=== PATIENT | female | born 1985 | race Caucasian/White ===

== ENCOUNTER 2016-11-16 11:01 | Inpatient (IN) | payer MEDICAID ==
[~2016-11-16] VITALS: Ht 154.9 cm; Wt 68.0 kg
[2016-11-16 11:01] VITALS: BP_SYST 121
--- NOTE | 2016-11-16 11:18 | NUR ---
Patient to ER bed 4 to gown for evaluation. Side rails up.
[2016-11-16] MEDS ORDERED: NACL 0.9% 1,000 ML IV ONE ×2 (11:20→14:45)
--- NOTE | 2016-11-16 11:20 | NUR ---
Pt presents to ED c/o abd pain RUQ and R flank pain since 0200 this AM with vomiting. Pt denies significant med hx. Pt reports vomiting greater than 10 prior to ED visit.
[2016-11-16] MEDS ORDERED: ONDANSETRON HCL 4 MG/2 ML VIAL IVP ONE ×2 (11:30→12:15)
[2016-11-16] MEDS ORDERED: KETOROLAC TROMETHAMINE 30 MG VIAL IVP ONE (11:30)
--- NOTE | 2016-11-16 11:30 | NUR ---
ER at bedside examining patient.
[2016-11-16 11:41] LABS: BASOPHILS % (AUTO) 0.3 % (0.0-2.0); EOSINOPHILS % (AUTO) 0.1 % (0.0-4.0); HEMATOCRIT 42.4 % (36-48); HEMOGLOBIN 13.9 g/dL (12.0-16.0); LYMPHOCYTES % (AUTO) 8.6 % (20.5-51.5); MEAN CORPUSCULAR HEMOGLOBIN 30 pg (27-31); MEAN CORPUSCULAR HGB CONC 33 % (32-36); MEAN CORPUSCULAR VOLUME 92 fL (79.0-98.0); MONOCYTES # (AUTO) 0.2 K/uL (0.0-1.0); MONOCYTES % (AUTO) 1.8 % (1.7-9.3); NEUTROPHILS # (AUTO) 10.5 K/uL (1.8-7.7); NEUTROPHILS % (AUTO) 89.2 % (40.0-70.0); PLATELET COUNT (AUTO) 305 K/uL (130-430); RED BLOOD CELL COUNT(AUTO) 4.59 MIL/uL (4.2-6.2); WHITE BLOOD COUNT (AUTO) 11.7 K/uL (4.8-10.8)
[2016-11-16 11:49] LABS: CALCIUM 9.9 mg/dL (8.4-11.0); CREATININE 0.76 mg/dL (0.55-1.30); POTASSIUM 3.3 mmol/L (3.5-5.1)
[2016-11-16 11:53] LABS: PROTHROMBIN TIME 10.9 SECS (9.5-12.5)
[2016-11-16 11:54] LABS: ALBUMIN 4.2 g/dL (3.4-4.8); TOTAL BILIRUBIN 0.5 mg/dL (0.0-1.0)
--- NOTE | 2016-11-16 11:58 | NUR ---
Discussed with Dr. España that I am unable to obtain urine specimen at this time to perform HCG. Patient states that today is the first day of her period. This was discussed with Dr. España who states it is ok to give Toradol.
--- NOTE | 2016-11-16 12:00 | NUR ---
Pt unable to give urine specimen
--- NOTE | 2016-11-16 12:20 | NUR ---
HCG positive through blood specimen. Pt persist that Menses started today.
[2016-11-16] MEDS ORDERED: HYDROmorphone 1 MG INJ. 1 MG/ML AMPUL IVP ONE (13:00)
[2016-11-16] MEDS ORDERED: METOCLOPRAMIDE HCL 10 MG/2 ML VIAL IVP ONE (13:00)
--- NOTE | 2016-11-16 13:00 | NUR ---
Pt med for pain. pt tolerated well.
--- NOTE | 2016-11-16 13:15 | NUR ---
Off unit for US.
[2016-11-16 13:18] LABS: BILIRUBIN,URINE NEGATIVE (NEGATIVE); BLOOD, URINE NEGATIVE (NEGATIVE); CLARITY/URINE CLEAR (CLEAR); COLOR,URINE YELLOW (YELLOW); GLUCOSE,URINE NEGATIVE (NEGATIVE); KETONES,URINE 3+ (NEGATIVE); LEUKOCYTE ESTERASE ,URINE NEGATIVE (NEGATIVE); NITRITE, URINE NEGATIVE (NEGATIVE); PROTEIN URINE 1+ (NEGATIVE)
[2016-11-16 13:22] LABS: BACTERIA,URINE MODERATE /HPF (None Seen); RBC,URINE 0-3 /HPF (0-3); WBC,URINE 0-3 /HPF (0-3)
[2016-11-16] MEDS ORDERED: POTASSIUM CHLORIDE 20 MEQ TAB.PRT.SR PO ONE (14:30)
--- NOTE | 2016-11-16 14:30 | NUR ---
Pt sleeping easily arouseable. No acute distress at this time.
[2016-11-16] MEDS ORDERED: PROCHLORPERAZINE EDISYLATE 10 MG/2 ML VIAL IVP ONE (14:45)
[2016-11-16] MEDS ORDERED: MORPHINE 2 MG/ML INJ. SYRINGE IVP ONE (14:45)
--- NOTE | 2016-11-16 15:30 | NUR ---
Pt medicatedfor pain and nausea. pt tolerate well.
--- NOTE | 2016-11-16 16:15 | NUR ---
Pt returned to sleeping. Continuing to monitor.
--- NOTE | 2016-11-16 17:25 | NUR ---
Pt refused tylenol for pain.
[2016-11-16] MEDS ORDERED: ACETAMINOPHEN 325 MG TABLET PO ONE (17:30)
--- NOTE | 2016-11-16 17:30 | NUR ---
Pt did not tolerate clear liquid diet.
--- NOTE | 2016-11-16 18:20 | NUR ---
Patient will be admitted to care of Dr. Weinberg. Admitted to OB unit. Will go to room 6. Belongings list completed. Summary report printed. Report will be given at bedside.
[2016-11-16] MEDS ORDERED: MORPHINE 4 MG/ML INJ. SYRINGE IM PRN (19:15)
[2016-11-16] MEDS ORDERED: METOCLOPRAMIDE HCL 10 MG/2 ML VIAL IVP PRN (19:15)
[2016-11-16] MEDS ORDERED: MORPHINE 4 MG/ML INJ. SYRINGE IVP PRN (19:15)
[2016-11-16] MEDS ORDERED: COMMUNICATION ORDER XX ONE (19:15)
[2016-11-16] MEDS: MORPHINE SULFATE 10 MG/ML VIAL IVP PRN (19:53)
[2016-11-16] MEDS: MORPHINE SULFATE 4 MG/ML VIAL IVP PRN (19:54)
[2016-11-16] MEDS: LR 1,000 ML IV SCH (19:55)
[2016-11-16] MEDS: ONDANSETRON HCL 4 MG/2 ML VIAL IVP SCH (20:07)
[2016-11-16 20:09] LABS: BARBITURATE, URINE NEGATIVE (NEG <=200); BENZODIAZEPINE, URINE NEGATIVE (NEG <=150); CANNABINOID, URINE POSITIVE (NEG <=50); COCAINE, URINE NEGATIVE (NEG <=150); METHAMPHETAMINES SCREEN,URINE NEGATIVE (NEG <=500); OPIATE, URINE POSITIVE (NEG <=100); PHENCYCLIDINE SCREEN,URINE NEGATIVE (NEG <=25); UR TRICYCLIC ANTIDEPRESSANTS NEGATIVE (NEG <=300); URINE AMPHETAMINE NEGATIVE (NEG <=500); URINE METHADONE NEGATIVE (NEG <=200); URINE OXYCODONE SCREEN NEGATIVE (NEG <=100); URINE PROPOXYPHENE SCREEN NEGATIVE (NEG <=300)
[2016-11-16 21:35] VITALS: BP_SYST 135
[2016-11-17] MEDS: ONDANSETRON HCL 4 MG/2 ML VIAL IVP SCH (03:15)
[2016-11-17] MEDS: MORPHINE SULFATE 10 MG/ML VIAL IVP PRN (03:17)
[2016-11-17] MEDS: MORPHINE SULFATE 4 MG/ML VIAL IVP PRN (03:18)
[2016-11-17] MEDS: LR 1,000 ML IV SCH (03:19)
[2016-11-17 06:36] LABS: BASOPHILS % (AUTO) 0.3 % (0.0-2.0); EOSINOPHILS % (AUTO) 0.4 % (0.0-4.0); HEMATOCRIT 31.5 % (36-48); HEMOGLOBIN 10.5 g/dL (12.0-16.0); LYMPHOCYTES # (AUTO) 2.1 K/uL (1.0-5.5); LYMPHOCYTES % (AUTO) 18.4 % (20.5-51.5); MEAN CORPUSCULAR HEMOGLOBIN 30 pg (27-31); MEAN CORPUSCULAR HGB CONC 33 % (32-36); MEAN CORPUSCULAR VOLUME 91 fL (79.0-98.0); MONOCYTES # (AUTO) 0.8 K/uL (0.0-1.0); MONOCYTES % (AUTO) 7.2 % (1.7-9.3); NEUTROPHILS # (AUTO) 8.6 K/uL (1.8-7.7); NEUTROPHILS % (AUTO) 73.7 % (40.0-70.0); PLATELET COUNT (AUTO) 212 K/uL (130-430); RED BLOOD CELL COUNT(AUTO) 3.46 MIL/uL (4.2-6.2); RED CELL DISTRIBUTION WIDTH 11.8 % (9.0-15.0); WHITE BLOOD COUNT (AUTO) 11.5 K/uL (4.8-10.8)
[2016-11-17 07:12] LABS: ALBUMIN 3.1 g/dL (3.4-4.8); CALCIUM 8.7 mg/dL (8.4-11.0); CREATININE 0.58 mg/dL (0.55-1.30); POTASSIUM 3.2 mmol/L (3.5-5.1); TOTAL BILIRUBIN 0.4 mg/dL (0.0-1.0)
[2016-11-17] MEDS ORDERED: ACETAMINOPHEN 325 MG TABLET ONE ×2 (07:30→15:19)
[2016-11-17] MEDS: ONDANSETRON 4 MG ODT TAB PO PRN ×2 (09:32→15:13)
[2016-11-17] MEDS: METOCLOPRAMIDE HCL 10 MG TABLET PO SCH ×2 (12:17→18:09)
[2016-11-17] MEDS ORDERED: ACETAMINOPHEN 325 MG TABLET PO PRN (15:15)
[2016-11-17] MEDS ORDERED: LR 1,000 ML IV SCH (17:45)
[2016-11-17] MEDS ORDERED: MORPHINE 4 MG/ML INJ. SYRINGE IVP PRN (17:45)
[2016-11-17] MEDS ORDERED: MORPHINE SULFATE 10 MG/ML VIAL IM PRN (17:45)
[2016-11-17] MEDS ORDERED: MORPHINE SULFATE 10 MG/ML VIAL IVP PRN (17:45)
[2016-11-18] MEDS ORDERED: ONDANSETRON HCL 4 MG/2 ML VIAL IVP PRN
[2016-11-18] MEDS: MORPHINE SULFATE 10 MG/ML VIAL IM PRN ×2 (01:03→06:10)
[2016-11-18 07:13] LABS: BASOPHILS % (AUTO) 0.5 % (0.0-2.0); EOSINOPHILS # (AUTO) 0.1 K/uL (0.0-0.4); EOSINOPHILS % (AUTO) 1.1 % (0.0-4.0); HEMOGLOBIN 10.9 g/dL (12.0-16.0); LYMPHOCYTES # (AUTO) 1.9 K/uL (1.0-5.5); LYMPHOCYTES % (AUTO) 24.1 % (20.5-51.5); MEAN CORPUSCULAR HEMOGLOBIN 30 pg (27-31); MEAN CORPUSCULAR HGB CONC 33 % (32-36); MEAN CORPUSCULAR VOLUME 92 fL (79.0-98.0); MONOCYTES # (AUTO) 0.5 K/uL (0.0-1.0); MONOCYTES % (AUTO) 6.8 % (1.7-9.3); NEUTROPHILS # (AUTO) 5.4 K/uL (1.8-7.7); NEUTROPHILS % (AUTO) 67.5 % (40.0-70.0); PLATELET COUNT (AUTO) 226 K/uL (130-430); RED CELL DISTRIBUTION WIDTH 11.6 % (9.0-15.0); WHITE BLOOD COUNT (AUTO) 7.9 K/uL (4.8-10.8)
== END 2016-11-18 14:00 | disposition home or self-care (01) | DRG 566 ==
LOC: SED 11:01 → SPU 17:47
PROVIDERS: ADMIT Obstetrics & Gynecology; ATTEND Obstetrics & Gynecology
DX: O21.0 Mild hyperemesis gravidarum (principal); Z87.442 Personal history of urinary calculi; Z3A.01 Less than 8 weeks gestation of pregnancy; Z82.49 Family history of ischemic heart disease and other diseases of the circulatory system
CPT/HCPCS: 36415; 76700-TC; 76801; 76817; 80053; 80307; 81000-TC; 81025; 83690-TC; 84702-TC; 85025; 85610-TC; 85730-TC; 87086; 96374; 96375; 99285; J0780; J1170; J1885; J2270; J2405; J2765; J7030; J7120; J8597; Q0162

== ENCOUNTER 2020-04-14 14:59 | Emergency (ER) | payer MEDICAID ==
[~2020-04-14] VITALS: Ht 157.5 cm; Wt 72.6 kg
[2020-04-14 15:20] VITALS: BP_SYST 154
[2020-04-14] MEDS ORDERED: ONDANSETRON 4 MG ODT TAB ONE (15:41)
[2020-04-14] MEDS ORDERED: ONDANSETRON HCL 4 MG/2 ML VIAL ONE (15:43)
[2020-04-14] MEDS ORDERED: MORPHINE 4 MG/ML INJ. SYRINGE ONE ×2 (15:58→20:09)
[2020-04-14] MEDS ORDERED: ONDANSETRON HCL 4 MG/2 ML VIAL IVP ONE (16:00)
[2020-04-14] MEDS ORDERED: NACL 0.9% 1,000 ML IV ONE (16:30)
[2020-04-14] MEDS ORDERED: HALOPERIDOL LACTATE 5 MG/ML VIAL IVP ONE (17:15)
[2020-04-14] MEDS ORDERED: HALOPERIDOL LACTATE 5 MG/ML VIAL ONE (17:19)
[2020-04-14 17:25] LABS: BASOPHILS % (AUTO) 0.1 % (0.0-2.0); HEMATOCRIT 41.3 % (36-48); HEMOGLOBIN 14.5 g/dL (12.0-16.0); LYMPHOCYTES # (AUTO) 0.8 K/uL (1.0-5.5); LYMPHOCYTES % (AUTO) 4.1 % (20.5-51.5); MEAN CORPUSCULAR HEMOGLOBIN 31 pg (27-31); MEAN CORPUSCULAR HGB CONC 35 % (32-36); MEAN CORPUSCULAR VOLUME 88 fL (79.0-98.0); MONOCYTES # (AUTO) 0.3 K/uL (0.0-1.0); MONOCYTES % (AUTO) 1.4 % (1.7-9.3); NEUTROPHILS # (AUTO) 18.2 K/uL (1.8-7.7); NEUTROPHILS % (AUTO) 94.4 % (40.0-70.0); PLATELET COUNT (AUTO) 335 K/uL (130-430); RED BLOOD CELL COUNT(AUTO) 4.71 MIL/uL (4.2-6.2); RED CELL DISTRIBUTION WIDTH 13.1 % (9.0-15.0); WHITE BLOOD COUNT (AUTO) 19.3 K/uL (4.8-10.8)
[2020-04-14] MEDS ORDERED: MORPHINE 4 MG/ML INJ. SYRINGE IVP ONE ×2 (17:45→20:00)
[2020-04-14 17:55] LABS: CALCIUM 9.4 mg/dL (8.4-11.0); CREATININE 0.78 mg/dL (0.55-1.30); POTASSIUM 3.5 mmol/L (3.5-5.1)
[2020-04-14 18:06] LABS: ALBUMIN 4.2 g/dL (3.4-4.8); TOTAL BILIRUBIN 0.6 mg/dL (0.0-1.0)
[2020-04-14 20:15] LABS: BILIRUBIN,URINE NEGATIVE (NEGATIVE); BLOOD, URINE NEGATIVE (NEGATIVE); CLARITY/URINE CLEAR (CLEAR); COLOR,URINE YELLOW (YELLOW); GLUCOSE,URINE NEGATIVE (NEGATIVE); KETONES,URINE 3+ (NEGATIVE); LEUKOCYTE ESTERASE ,URINE NEGATIVE (NEGATIVE); NITRITE, URINE NEGATIVE (NEGATIVE); PH,URINE 6.5 (5.0-8.0); PROTEIN URINE 1+ (NEGATIVE); UROBILINOGEN,URINE 0.2 (0.2-1.0)
[2020-04-14] MEDS ORDERED: METOCLOPRAMIDE HCL 10 MG/2 ML VIAL IVP ONE (20:15)
[2020-04-14 20:39] LABS: RBC,URINE NONE SEEN /HPF (0-3)
[2020-04-14 20:40] LABS: BACTERIA,URINE None Seen /HPF (None Seen); MUCUS,URINE 2+ /LPF (None Seen)
[2020-04-14] MEDS ORDERED: MAG-AL HYDROX/SIMETH 30 ML UDC PO ONE (22:30)
[2020-04-14] MEDS ORDERED: FAMOTIDINE 20 MG TABLET PO ONE (22:30)
[2020-04-14] MEDS ORDERED: ACETAMINOPHEN 325 MG TABLET PO ONE (22:30)
[2020-04-14] MEDS ORDERED: MAG-AL HYDROX/SIMETH 30 ML UDC ONE (22:35)
[2020-04-14 23:05] VITALS: BP_SYST 134
== END 2020-04-14 23:05 | disposition home or self-care (01) ==
LOC: SED 14:59
DX: R10.11 Right upper quadrant pain (principal); R10.31 Right lower quadrant pain; R11.2 Nausea with vomiting, unspecified
CPT/HCPCS: 36415; 71045; 74177; 76376; 76700; 76856; 80053; 81000; 81025; 83690; 84702; 85025; 93005; 96361; 96374; 96375; 96376; 99285; J1630; J2270; J2405; J2765; J7030; Q0162; Q9967

== ENCOUNTER 2020-04-23 09:23 | Emergency (ER) | payer MEDICAID ==
[~2020-04-23] VITALS: Ht 167.6 cm; Wt 77.1 kg
[2020-04-23 09:24] VITALS: BP_SYST 167
--- NOTE | 2020-04-23 09:24 | NUR ---
Patient to ER bed 6 to gown for evaluation. Side rails up.
--- NOTE | 2020-04-23 09:25 | NUR ---
Pt bib EMS from home with c/o abdominal pain x1 week, 12/28. Reports n/v and constipation also. V/S stable, pt is afebrile. Currently resting in bed,
--- NOTE | 2020-04-23 09:30 | NUR ---
ER Dr. Vieyra at bedside examining patient.
[2020-04-23] MEDS ORDERED: HALOPERIDOL LACTATE 5 MG/ML VIAL IVP ONE (09:45)
[2020-04-23] MEDS ORDERED: NACL 0.9% 1,000 ML IV ONE (09:45)
[2020-04-23] MEDS ORDERED: DIPHENHYDRAMINE INJ 50 MG/ML VIAL IVP ONE (09:45)
--- NOTE | 2020-04-23 09:45 | NUR ---
# 22 gauge angiocath placed to LAC. Use of asceptic technique. Opsite placed over site. Blood return noted. Blood for lab drawn from site. Flushed with 10 cc of normal saline. No evidence of infiltration noted. Patient tolerated well.
--- NOTE | 2020-04-23 10:00 | NUR ---
Radiology at bedside for abdominal x-ray
[2020-04-23 10:22] LABS: CALCIUM 9.4 mg/dL (8.4-11.0); CREATININE 0.88 mg/dL (0.55-1.30); POTASSIUM 3.8 mmol/L (3.5-5.1)
[2020-04-23 10:28] LABS: ALBUMIN 4.1 g/dL (3.4-4.8); TOTAL BILIRUBIN 0.4 mg/dL (0.0-1.0)
[2020-04-23 10:29] LABS: BASOPHILS % (AUTO) 0.4 % (0.0-2.0); EOSINOPHILS % (AUTO) 0.1 % (0.0-4.0); HEMATOCRIT 41.7 % (36-48); HEMOGLOBIN 14.5 g/dL (12.0-16.0); LYMPHOCYTES # (AUTO) 1.6 K/uL (1.0-5.5); LYMPHOCYTES % (AUTO) 14.9 % (20.5-51.5); MEAN CORPUSCULAR HEMOGLOBIN 31 pg (27-31); MEAN CORPUSCULAR HGB CONC 35 % (32-36); MEAN CORPUSCULAR VOLUME 87 fL (79.0-98.0); MONOCYTES # (AUTO) 0.4 K/uL (0.0-1.0); MONOCYTES % (AUTO) 3.6 % (1.7-9.3); NEUTROPHILS # (AUTO) 8.7 K/uL (1.8-7.7); PLATELET COUNT (AUTO) 307 K/uL (130-430); RED BLOOD CELL COUNT(AUTO) 4.77 MIL/uL (4.2-6.2); RED CELL DISTRIBUTION WIDTH 13.1 % (9.0-15.0); WHITE BLOOD COUNT (AUTO) 10.7 K/uL (4.8-10.8)
[2020-04-23] MEDS ORDERED: KETAMINE 30 MG/3 ML SYRINGE 15 MG in NS 100 ML IV ONE (11:30)
[2020-04-23] MEDS ORDERED: MORPHINE 4 MG/ML INJ. SYRINGE IVP ONE (11:30)
[2020-04-23] MEDS ORDERED: KETAMINE 30 MG/3 ML SYRINGE ONE (11:32)
[2020-04-23] MEDS ORDERED: HAL5 PO (12:07)
[2020-04-23] MEDS ORDERED: BENZ1TAB8 PO (12:08)
[2020-04-23] MEDS ORDERED: HYDR-3917 PO (12:10)
--- NOTE | 2020-04-23 12:20 | NUR ---
Patient given written and verbal discharge instructions and verbalizes understanding. ER MD discussed with patient the results and treatment provided. Patient in stable condition. ID arm band removed. IV catheter removed intact and dressing applied, no active bleeding. No Rx of given. Patient educated on pain management and to follow up with PMD. Pain Scale 3/10. Opportunity for questions provided and answered. Medication side effect fact sheet provided.
[2020-04-23 12:43] VITALS: BP_SYST 140
== END 2020-04-23 12:20 | disposition home or self-care (01) ==
LOC: SED 09:23
DX: R10.84 Generalized abdominal pain (principal); R11.10 Vomiting, unspecified; E03.9 Hypothyroidism, unspecified; N28.9 Disorder of kidney and ureter, unspecified; Z87.442 Personal history of urinary calculi; Z79.899 Other long term (current) drug therapy
CPT/HCPCS: 36415; 74018; 80053; 83690; 84702; 84703; 85025; 96374; 96375; 99284; J1200; J1630; J2270; J7030